=== PATIENT | female | born 2005 | race Caucasian/White ===

== ENCOUNTER 2025-05-09 18:17 | Emergency (ER) | payer OTHER ==
[~2025-05-09 18:17] MED LIST: Iopamidol 370 76% 100 ML VIAL ONE
[2025-05-09] MEDS ORDERED: Ondansetron PF 4 MG/2 ML Vial ONE (19:12)
[2025-05-09 19:16] LABS: #Basophils 0.2 thou/uL (0.0-0.2); #Eosinophils 0.1 thou/uL (0.0-0.7); #Lymphocytes 0.8 thou/uL (1.20-3.40); #Monocytes 0.9 thou/uL (0.11-0.59); #Neutrophils 11.4 thou/uL (1.40-6.50); %Basophils 1.3 % (0.0-1.0); %Eosinophils 0.6 % (0.0-10.0); %Lymphocytes 6.1 % (28.0-48.0); %Monocytes 6.9 % (0.0-4.0); %Neutrophils 85.2 % (31.0-61.0); Hematocrit 43.3 % (36.0-47.0); Hemoglobin 15.9 g/dL (12.0-16.0); Mean Corpuscular Hemoglobin 29.7 pg (25.0-35.0); Mean Corpuscular Volume 81.1 fl (78.0-98.0); Platelet Count 231 10x3/uL (130-400); Red Blood Cell (RBC) Count 5.33 mill/uL (4.00-5.20); White Blood Cell (WBC) Count 13.4 10x3/uL (4.8-10.8)
[2025-05-09 19:17] LABS: MDiff Complete? YES
[2025-05-09 19:28] LABS: ALT (SGPT) 95 U/L (Less than 34); AST (SGOT) 35 U/L (11-34); Albumin 4.8 g/dL (3.1-4.5); Alkaline Phosphatase 82 U/L (40-100); Anion Gap 21 mmol/L (10-20); BUN (Urea Nitrogen) 14 mg/dL (7.0-18.7); Bilirubin, Total 1.3 mg/dL (0.3-1.2); Calc. Creatinine Clearance 0 mL/min (70-130); Calcium 9.8 mg/dL (7.8-10.44); Carbon Dioxide 21 mmol/L (22-29); Chloride 105 mmol/L (98-107); Globulin 3.1 g/dL (2.4-3.5); Glucose 109 mg/dL (70-105); Potassium 4.6 mmol/L (3.5-5.1); Sodium 142 mmol/L (136-145)
[2025-05-09 20:15] LABS: Glucose, Urine (Dipstick) Negative (Negative); Leukocyte Small (Negative); Protein, Urine (Dipstick) 30 mg/dL (Neg-Trace); Specific Gravity, Urine 1.025 (1.005-1.030)
[2025-05-09 20:17] LABS: Pregnancy Test - Urine (BHCG) Negative (Negative); Pregu Control Background? CLEAR/WHITE (CLR/WHITE); Pregu Control Bar Appear? YES (CONTROL BAR)
[2025-05-09 20:22] LABS: Bacteria/HPF 3+ HPF (None Seen); CAUTI Indications for Culture Pelvic or flank pain; RBC/HPF 0-3 HPF (0-3); Urine Culture Reflex No No
[2025-05-09] MEDS ORDERED: Ketorolac Tromethamine 30 MG (1 mL) VIAL ONE (21:52)
== END 2025-05-09 22:56 | disposition home or self-care (01) ==
LOC: BURERS 18:17
DX: K52.9 Noninfective gastroenteritis and colitis, unspecified (principal)
CPT/HCPCS: 36415; 74177; 80053; 81001; 81025; 83605; 83690; 85025; 87040; 96361; 96374; 96375; J1885; Q9967

== ENCOUNTER 2025-05-23 09:22 | Emergency (ER) | payer OTHER | END 2025-05-23 10:56 | disposition home or self-care (01) | LOC: BURERS 09:22 | DX: J20.8 Acute bronchitis due to other specified organisms (principal) | CPT/HCPCS: 71046 ==